=== PATIENT | male | born 1985 | race Caucasian/White ===

== ENCOUNTER 2019-07-16 18:23 | Emergency (ER) | payer MEDICAID ==
[~2019-07-16] VITALS: Ht 175.3 cm; Wt 88.8 kg
[2019-07-16 18:44] VITALS: BP 129/77
[2019-07-16] MEDS ORDERED: DIPH,PERTUSS(ACELL),TET VAC/PF 0.5 ML IM-VACC ONE ×2 (19:30→19:35)
[2019-07-16] MEDS ORDERED: NEOSPORIN OINT. PKT 1 PACKET ONE (19:33)
--- NOTE | 2019-07-16 20:00 | NUR ---
WOUND CLEANED, BACITRACIN APPLIED, TETANUS GIVEN.
== END 2019-07-16 20:19 | disposition home or self-care (01) ==
LOC: ED 20:11
DX: S60.474A Other superficial bite of right ring finger, initial encounter (principal); S60.476A Other superficial bite of right little finger, initial encounter; W54.0XXA Bitten by dog, initial encounter; Y93.89 Activity, other specified; Y92.098 Other place in other non-institutional residence as the place of occurrence of the external cause
CPT/HCPCS: 90471; 90715; 99283